=== PATIENT | male | born 1985 | race Caucasian/White ===

== ENCOUNTER 2024-01-03 05:58 | Emergency (ER) | payer MEDICAID ==
[~2024-01-03] VITALS: Ht 182.9 cm; Wt 90.7 kg
[2024-01-03] MEDS ORDERED: ONDANSETRON HCL/PF 4 MG/2 ML VIAL ONE (06:33)
[2024-01-03] MEDS ORDERED: ACETAMINOPHEN ES 500 MG TABLET ONE (06:33)
[2024-01-03] MEDS ORDERED: FAMOTIDINE/PF INJ 20 MG/2 ML VIAL IV ONE (06:34)
[2024-01-03] MEDS: FAMOTIDINE/PF INJ 20 MG/2 ML VIAL IV ONE (06:52)
[2024-01-03] MEDS: ACETAMINOPHEN ES 500 MG TABLET PO ONE (06:52)
[2024-01-03] MEDS: ONDANSETRON HCL/PF 4 MG/2 ML VIAL IVP ONE (06:52)
[2024-01-03] MEDS: IV NS 0.9% 1,000 ML BAG IV ONE (06:52)
[2024-01-03 06:54] LABS: BASOPHILS % (AUTO) 0.5 % (0.0-2.0); EOSINOPHILS # (AUTO) 0.2 K/uL (0.0-0.7); EOSINOPHILS % (AUTO) 2.6 % (0.0-6.0); HEMATOCRIT 38 % (39-51); HEMOGLOBIN 13.1 g/dL (13.5-17.5); LYMPHOCYTES # (AUTO) 1.9 K/uL (0.8-4.8); LYMPHOCYTES % (AUTO) 27.2 % (20.0-44.0); MEAN CORPUSCULAR HEMOGLOBIN 27 PG (26.0-33.0); MEAN CORPUSCULAR HGB CONC 34 g/dl (31.0-36.0); MEAN CORPUSCULAR VOLUME 78 fL (80-96); MONOCYTES # (AUTO) 0.8 K/uL (0.1-1.30); MONOCYTES % (AUTO) 11.5 % (2.0-12.0); NEUTROPHILS % (AUTO) 58.2 % (43.0-81.0); PLATELET COUNT (AUTO) 219 K/uL (150-450); RED BLOOD CELL COUNT(AUTO) 4.91 MIL/uL (4.5-6.0); RED CELL DISTRIBUTION WIDTH 15.3 % (11.5-15.0); WHITE BLOOD COUNT (AUTO) 6.9 K/uL (4.3-11.0)
[2024-01-03 07:31] LABS: ALBUMIN 3.3 g/dL (3.4-5.0); BILIRUBIN,DIRECT 0.1 mg/dL (0.0-0.2); BILIRUBIN,TOTAL 0.4 mg/dL (0.2-1.0); CALCIUM, SERUM 9.1 mg/dL (8.5-10.1); CREATININE 0.7 mg/dL (0.6-1.3); POTASSIUM 3.8 mmol/L (3.5-5.1); TOTAL PROTEIN, SERUM 7.1 g/dL (6.4-8.2)
[2024-01-03] MEDS ORDERED: ONDA4TAB5 PO (08:15)
[2024-01-03 08:42] VITALS: BP 126/84; TEMP 98; O2SAT 98
== END 2024-01-03 08:43 | disposition home or self-care (01) ==
LOC: ER 06:12
DX: R11.10 Vomiting, unspecified (principal); R10.13 Epigastric pain; R19.7 Diarrhea, unspecified
CPT/HCPCS: 99285; 96374; 96361; 96375; 85025; 80048; 83690; 80076; 36415; J3490; J2405; J7030

== ENCOUNTER 2024-01-07 19:48 | Emergency (ER) | payer MEDICAID ==
[~2024-01-07] VITALS: Ht 185.4 cm; Wt 127.0 kg
[~2024-01-07 19:48] MED LIST: ONDA4TAB5 PO
[2024-01-07] MEDS: FAMOTIDINE/PF INJ 20 MG/2 ML VIAL IV ONE (20:30)
[2024-01-07 20:32] LABS: BASOPHILS % (AUTO) 0.3 % (0.0-2.0); EOSINOPHILS # (AUTO) 0.2 K/uL (0.0-0.7); EOSINOPHILS % (AUTO) 3.4 % (0.0-6.0); HEMATOCRIT 36 % (39-51); HEMOGLOBIN 11.9 g/dL (13.5-17.5); LYMPHOCYTES # (AUTO) 1.6 K/uL (0.8-4.8); LYMPHOCYTES % (AUTO) 26.4 % (20.0-44.0); MEAN CORPUSCULAR HEMOGLOBIN 27 PG (26.0-33.0); MEAN CORPUSCULAR HGB CONC 34 g/dl (31.0-36.0); MEAN CORPUSCULAR VOLUME 79 fL (80-96); MONOCYTES # (AUTO) 0.5 K/uL (0.1-1.30); MONOCYTES % (AUTO) 8.8 % (2.0-12.0); NEUTROPHILS # (AUTO) 3.6 K/uL (1.8-8.9); NEUTROPHILS % (AUTO) 61.1 % (43.0-81.0); PLATELET COUNT (AUTO) 228 K/uL (150-450); RED BLOOD CELL COUNT(AUTO) 4.47 MIL/uL (4.5-6.0); RED CELL DISTRIBUTION WIDTH 15.1 % (11.5-15.0); WHITE BLOOD COUNT (AUTO) 5.9 K/uL (4.3-11.0)
[2024-01-07 20:38] LABS: CALCIUM, SERUM 8.9 mg/dL (8.5-10.1); CREATININE 0.8 mg/dL (0.6-1.3); POTASSIUM 3.5 mmol/L (3.5-5.1)
[2024-01-07 20:44] LABS: ALBUMIN 3.2 g/dL (3.4-5.0); BILIRUBIN,DIRECT 0.1 mg/dL (0.0-0.2); BILIRUBIN,TOTAL 0.5 mg/dL (0.2-1.0); TOTAL PROTEIN, SERUM 6.8 g/dL (6.4-8.2)
[2024-01-07] MEDS: IV NS 0.9% 1,000 ML BAG IV ONE (20:44)
[2024-01-07] MEDS ORDERED: FAMOTIDINE/PF INJ 20 MG/2 ML VIAL IV ONE (20:46)
[2024-01-07] MEDS ORDERED: ONDA4TAB11 PO (20:50)
[2024-01-07] MEDS ORDERED: CLOT24CR2 TP (20:50)
[2024-01-07] MEDS ORDERED: FAMO-131 PO (20:50)
[2024-01-07 21:31] VITALS: BP 139/85; TEMP 99.3; O2SAT 98
== END 2024-01-07 22:00 | disposition home or self-care (01) ==
LOC: ER 19:51
DX: B37.2 Candidiasis of skin and nail (principal); R10.13 Epigastric pain; R21 Rash and other nonspecific skin eruption; R11.10 Vomiting, unspecified; G89.29 Other chronic pain; M54.9 Dorsalgia, unspecified
CPT/HCPCS: 99283; 96374; 96361; 85025; 80048; 83690; 80076; 36415; J3490; J7030